=== PATIENT | male | born 1990 | race American Indian/Alaskan Native ===

== ENCOUNTER 2020-02-06 23:56 | Emergency (ER) | payer MEDICARE ==
[2020-02-07] MEDS ORDERED: ZIPRASIDONE MESYLATE 20 MG VIAL IM ONE ×2 (00:05)
--- NOTE | 2020-02-07 00:08 | Emergency Department Report ---
ED Psych HPI - General Stated Complaint: PSYCH NOT TAKING MEDS Time Seen by Provider: 02/07/20 00:04 Source: patient Mode of arrival: Ambulatory Limitations: Altered Mental Status - History of Present Illness Initial Comments: Patient is a 29-year-old male with a history of schizophrenia that that presents emergency room with EMS and the police for mental health evaluation and agitation. Patient was brought in on EMS stretcher and cough. Patient was escorted by the police for the safety of the EMS since he has a history of aggressive behavior. Patient today is agitated. Patient is refusing to talk and is twisting and turning and trying to get up out of the bed.. Complaint: altered mental status -: Sudden History of same: Yes Quality: constant Improves With: none Worsens With: none Context: not taking psychiatric Treatments Prior to Arrival: placed on mental he, physical restraints - Related Data Allergies Allergy/AdvReac Type Severity Reaction Status Date / Time Unable to Assess Allergy Unverified 02/07/20 00:31 ED Review of Systems ROS: Stated complaint: PSYCH NOT TAKING MEDS Other details as noted in HPI Comment: Unobtainable due to pts medical conditions ED Past Medical Hx - Past Medical History Previous Medical History?: Yes Hx Psychiatric Treatment: Yes - Surgical History Past Surgical History?: No - Family History Family history: no significant - Social History Smoking Status: Unknown if ever smoked Substance Use Type: None ED Physical Exam - General Limitations: Altered Mental Status General appearance: alert, anxious, other - Head Head exam: Present: atraumatic, normocephalic - Eye Eye exam: Present: normal appearance - ENT ENT exam: Present: mucous membranes moist - Neck Neck exam: Present: normal inspection - Respiratory Respiratory exam: Present: normal lung sounds bilaterally. Absent: respiratory distress - Cardiovascular Cardiovascular Exam: Present: regular rate, normal rhythm. Absent: systolic murmur, diastolic murmur, rubs, gallop - GI/Abdominal GI/Abdominal exam: Present: soft, normal bowel sounds - Rectal Rectal exam: Present: deferred - Extremities Exam Extremities exam: Present: normal inspection - Back Exam Back exam: Present: normal inspection - Neurological Exam Neurological exam: Present: alert, altered - Psychiatric Psychiatric exam: Present: agitated - Expanded Psychiatric Exam Expanded Focused psych exam: Present: psychomotor agitation, mute - Skin Skin exam: Present: warm, dry, intact, normal color. Absent: rash ED Course Vital Signs 02/07/20 00:05 Temperature 98.0 F Pulse Rate 88 Respiratory 18 Rate Blood Pressure 168/74 O2 Sat by Pulse 100 Oximetry - Reevaluation(s) Reevaluation #1: Initial evaluation done. Patient placed on 1013 for agitation and acute psychosis. Patient given 20 mg of Geodon. Patient will have labs done. 02/07/20 00:06 Reevaluation #2: Patient resting comfortably. Patient not agitated. I discussed all results and clinical findings with patient. I discussed plan of care with patient. Patient agrees with plan of care. Patient is medically cleared. Patient's labs are unremarkable. Patient is final disposition will come from our psychiatric and mental health team. 02/07/20 02:11 ED Medical Decision Making - Lab Data Result diagrams: 02/07/20 01:02 02/07/20 01:02 - Medical Decision Making Patient is a 29-year-old male that has a known history of schizophrenia. Patient is currently off his medications. Patient came in with EMS and the police for aggressive behavior. Patient was agitated upon initial evaluation. Patient was given 20 of Geodon and responded well. Patient placed on a 1013 for his acute psychosis and agitation. Patient's labs are essentially unremarkable. Patient's UDS is positive for THC. Patient medically cleared. Patient will remain in the ER as an ER hold and a 1013. Patient's final disposition will come from our psychiatry team. - Differential Diagnosis Aggressive behavior, agitation, acute psychosis. Noncompliance Critical care attestation.: If time is entered above; I have spent that time in minutes in the direct care of this critically ill patient, excluding procedure time. ED Disposition Clinical Impression: Agitation, Acute psychosis, Noncompliance with medication regimen Is pt being admited?: No Does the pt Need Aspirin: No Condition: Stable Time of Disposition: 02:12
[2020-02-07 01:36] LABS: Amphetamine Screen,Urine PRESUMPTIVE NEGATIVE; Benzodiazepines Screen,Urine PRESUMPTIVE NEGATIVE; Cocaine Screen,Urine PRESUMPTIVE NEGATIVE; Methadone Screen,Urine PRESUMPTIVE NEGATIVE; Opiate Screen,Urine PRESUMPTIVE NEGATIVE
[2020-02-07 01:43] LABS: Basophils % (Auto) 0.4 % (0.0-1.8); Eosinophils % (Auto) 0.2 % (0.0-4.3); Hematocrit 49.5 % (35.5-45.6); Hemoglobin 16.7 gm/dl (11.8-15.2); Lymphocytes # (Auto) 1.7 K/mm3 (1.2-5.4); Lymphocytes % (Auto) 23.3 % (13.4-35.0); Mean Corpuscular HGB Conc 34 % (32-34); Mean Corpuscular Volume 90 fl (84-94); Monocytes # (Auto) 0.7 K/mm3 (0.0-0.8); Monocytes % (Auto) 8.8 % (0.0-7.3); Platelet Count 152 K/mm3 (140-440); Red Blood Count 5.48 M/mm3 (3.65-5.03); Red Cell Distribution Width 13.6 % (13.2-15.2)
[2020-02-07 01:53] LABS: Alanine Aminotransferase 17 units/L (7-56); Albumin 4.6 g/dL (3.9-5); BUN/Creatinine Ratio 11; Blood Urea Nitrogen 11 mg/dL (9-20); Calcium 9.6 mg/dL (8.4-10.2); Hemolysis Index 11
[2020-02-07 01:55] LABS: Bacteria,Urine 1+ /HPF (Negative); Bilirubin,Urine NEG (Negative); Blood,Urine NEG (Negative); Color,Urine Yellow (Yellow); Mucus,Urine FEW /HPF; Protein,Urine <15 mg/dL mg/dL (Negative)
[2020-02-07 02:05] LABS: Cannabinoid Screen,Urine PRESUMPTIVE POSITIVE
== END 2020-02-07 17:00 ==
LOC: ED 23:56
DX: F23 Brief psychotic disorder (principal); Z79.899 Other long term (current) drug therapy
CPT/HCPCS: 36415; 80053; 80307; 81001; 85025; 96372; 99285; J3486; 80320; G0480